=== PATIENT | male | born 1995 | race African-American/Black ===

== ENCOUNTER 2019-08-16 06:43 | Emergency (ER) | payer OTHER ==
[~2019-08-16] VITALS: Ht 175.3 cm; Wt 69.4 kg
[2019-08-16 06:56] VITALS: BP 124/70
--- NOTE | 2019-08-16 07:05 | NUR ---
ED Nurse Note: Patient walked in to ER c/o N/V/D x 2 days. States was drinking too much alcohol day before yesterday. Patient presented calm, AAO x4, VSS at this time, skin is warm to touch.
--- NOTE | 2019-08-16 07:09 | Emergency Room Report ---
History of Present Illness General Chief Complaint: Nausea, Vomiting, and Diarrhea Source: Patient Present Illness HPI 24-year-old male presents with persistent vomiting, nausea after consuming heavy alcohol 2 days prior. Patient reports 2 nights ago he went out with friends had multiple types of alcohol Gail, Laura, many mixers. He reported shortly after he started having multiple episodes of vomiting. Patient reported going to work and was unable to control his symptoms. He has nausea at this time. Last episode of vomiting 3 hours ago. Vomitus is nonbloody nonbilious. He denies any prior abdominal surgeries. He denies any drug use. He denies any prior history of alcoholism or heavy alcohol consumption in the past. He denies any urinary symptoms. Allergies: Coded Allergies: EGG (Verified Allergy, Unknown, 08/16/19) Nursing Documentation-[facility] Past Medical History: No Stated History Review of Systems Constitutional: Denies: chills, fever Respiratory: Denies: cough, shortness of breath Cardiovascular: Denies: chest pain, palpitations Gastrointestinal: Reports: abdominal pain, nausea, vomiting; Denies: diarrhea Genitourinary: Denies: hematuria, pain Musculoskeletal: Denies: joint swelling Skin: Denies: rash, lesions Neurological: Denies: headache, dizziness Physical Exam Vital Signs Date Time Temp Pulse Resp B/P (MAP) Pulse Ox O2 Delivery O2 Flow Rate FiO2 08/16/19 06:48 99.3 97 18 124/70 (88) 97 Room Air Sp02 EP Interpretation: reviewed General Appearance: well appearing, no apparent distress, non-toxic Head: normocephalic, atraumatic Eyes: bilateral eye normal inspection ENT: hearing grossly normal, EOM grossly intact, moist mucus membranes Neck: supple Respiratory: lungs clear, normal breath sounds, no respiratory distress, speaking full sentences Cardiovascular #1: regular rate, rhythm, normal capillary refill Cardiovascular #2: 2+ radial (R), 2+ radial (L) Gastrointestinal: soft, no mass, no organomegaly, no peritonitis, non-distended , no guarding, no hernia, no pulsatile mass, no rebound Rectal: deferred Musculoskeletal: moves extm spontaneously, no lower extremity edema Neurologic: grossly normal Psychiatric: mood/affect normal Skin: warm/dry, normal turgor Medical Decision Making Diagnostic Impression: Primary Impression: Nausea & vomiting Additional Impression: Hypokalemia ER Course 24-year-old male presents with heavy alcohol consumption and multiple episodes of vomiting for last 2 days. Patient is nontender on exam. We will hydrate patient, give antiemetic and antacid. Last Vital Signs Date Time Temp Pulse Resp B/P (MAP) Pulse Ox O2 Delivery O2 Flow Rate FiO2 08/16/19 06:56 99.3 18 124/70 97 Room Air 08/16/19 06:48 97 Status: improved Reevaluation Impression Patient reports feeling much better. He tolerated p.o. challenge. Patient recommended to be followed up with primary care doctor in 2 to 3 days. Patient advised to use banana or other foods high in potassium. Disposition: HOME, SELF-CARE Condition: Stable Referrals: [facility] Patient Instructions: Hypokalemia, Nausea and Vomiting, Adult Additional Instructions: Please stay hydrated today and to follow-up with your primary care doctor in 2 to 3 days Jeremy Chan M.D. Aug 16, 2019 07:09
--- NOTE | 2019-08-16 07:19 | NUR ---
HAND-OFF: Report given to REGINO Bateman.
--- NOTE | 2019-08-16 07:20 | NUR ---
ED Nurse Note: Received patient from REGINO Herrera. Patient is laying comfortably in bed. Patient is AAOx4, on room air with stable vital signs.
[2019-08-16 07:37] LABS: HEMATOCRIT 52.5 % (42.0-52.0); HEMOGLOBIN 17.9 G/DL (14.2-18.0); MEAN CORPUSCULAR VOLUME 91 FL (80-99); PLATELET COUNT 204 K/UL (150-450); RED CELL DISTRIBUTION WIDTH 11.4 % (11.6-14.8)
[2019-08-16 07:44] LABS: APPEARANCE,URINE CLEAR; BILIRUBIN, URINE NEGATIVE (NEGATIVE); COLOR,URINE YELLOW; GLUCOSE, URINE (UA) NEGATIVE (NEGATIVE); KETONES,URINE 3+ (NEGATIVE); LEUKOCYTE ESTERASE ,URINE NEGATIVE (NEGATIVE); NITRITE,URINE NEGATIVE (NEGATIVE); PH,URINE 6.5 (4.5-8.0); PROTEIN,URINE 2+ (NEGATIVE); UROBILINOGEN,URINE NORMAL MG/DL (0.0-1.0)
[2019-08-16 07:47] LABS: ANION GAP 12 mmol/L (5-15); BLOOD UREA NITROGEN 10 mg/dL (7-18); CALCIUM 9.6 MG/DL (8.5-10.1); CARBON DIOXIDE 25 MMOL/L (21-32); CHLORIDE 102 MMOL/L (98-107); CREATININE 1.2 MG/DL (0.55-1.30); POTASSIUM 3.3 MMOL/L (3.5-5.1); SODIUM 139 MMOL/L (136-145)
[2019-08-16 07:56] LABS: ALANINE AMINOTRANSFERASE 22 U/L (12-78); ALBUMIN 4.6 G/DL (3.4-5.0); ALBUMIN/GLOBULIN RATIO 1.1 (1.0-2.7); ALKALINE PHOSPHATASE 99 U/L (46-116); ASPARTATE AMINO TRANSFERASE 19 U/L (15-37); BILIRUBIN,TOTAL 1.7 MG/DL (0.2-1.0)
[2019-08-16 07:58] LABS: BILIRUBIN,DIRECT 0.3 MG/DL (0.0-0.3)
[2019-08-16 08:21] VITALS: BP 128/73
[2019-08-16 08:24] VITALS: BP 128/73
--- NOTE | 2019-08-16 08:24 | NUR ---
ER DISCHARGE NOTE: Patient is cleared to be discharged per ERMDaniel Chan, pt is aox4, on room air, with stable vital signs. pt was given dc and prescription instructions, pt was able to verbalize understanding, pt id band and iv site removed without complications. pt is able to ambulate with steady gait. pt took all belongings.
== END 2019-08-16 08:24 | disposition home or self-care (01) ==
LOC: EMR 07:08
DX: R11.2 Nausea with vomiting, unspecified (principal); E87.6 Hypokalemia; Z91.012 Allergy to eggs
CPT/HCPCS: 36415; 80053; 81003; 82248; 83690; 85007; 85025; 96361; 96374; 96375; J2405; S0028; Z7502; 99284